=== PATIENT | male | born 1960 | race Hispanic/Latino ===

== ENCOUNTER 2019-06-15 16:41 | Emergency (ER) | payer MEDICAID ==
[2019-06-15] MEDS ORDERED: ONDANSETRON HCL 4 MG/2 ML VIAL ONE (17:13)
[2019-06-15] MEDS ORDERED: SODIUM CHLORIDE 0.9% 1000ML 1,000 ML IV ONE (17:14)
[2019-06-15 17:18] LABS: BASOPHILS % (AUTO) 0.4 % (0.0-5.0); EOSINOPHILS % (AUTO) 0.3 % (0.0-8.0); HEMATOCRIT 47.2 % (42-54); LYMPHOCYTES % (AUTO) 11.5 % (21.0-51.0); MEAN CORPUSCULAR HEMOGLOBIN 30.1 pg (27.0-33.0); MEAN CORPUSCULAR HGB CONC 33.5 g/dL (32.0-36.0); MEAN CORPUSCULAR VOLUME 89.9 fL (79-99); MONOCYTES % (AUTO) 6.2 % (3.0-13.0); NEUTROPHILS % (AUTO) 81.2 % (40.0-77.0); PLATELET COUNT (AUTO) 292 K/uL (130-400); RED BLOOD CELL COUNT(AUTO) 5.25 MIL/uL (4.50-6.20); RED CELL DISTRIBUTION WIDTH 12.9 % (11.0-15.5)
[2019-06-15 17:29] LABS: CREATININE 0.8 mg/dL (0.5-1.5); POTASSIUM 3.2 mmol/L (3.5-5.1)
[2019-06-15 17:36] LABS: ALBUMIN 4.2 g/dL (3.5-5.0); BILIRUBIN,DIRECT 0.1 mg/dL (0.0-0.3); BILIRUBIN,TOTAL 0.4 mg/dL (0.2-1.0); TOTAL PROTEIN, SERUM 8.3 g/dL (6.0-8.3)
[2019-06-15 19:38] LABS: APPEARANCE,URINE Clear (CLEAR); BILIRUBIN,URINE Negative (NEGATIVE); COLOR,URINE Yellow (YELLOW); GLUCOSE, URINE (UA) Negative (NEGATIVE); KETONES,URINE Negative (NEGATIVE); LEUKOCYTE ESTERASE ,URINE Negative (NEGATIVE); NITRATE,URINE Negative (NEGATIVE); OCCULT BLOOD,URINE Negative (NEGATIVE); PH,URINE 8.5 (5.0-8.0); PROTEIN,URINE Negative (NEGATIVE); UROBILINOGEN,URINE 0.2 mg/dL (0.2-1.0)
== END 2019-06-15 21:12 | disposition home or self-care (01) ==
LOC: EDH 16:41
DX: K52.9 Noninfective gastroenteritis and colitis, unspecified (principal); E78.00 Pure hypercholesterolemia, unspecified; I10 Essential (primary) hypertension; Z86.73 Personal history of transient ischemic attack (TIA), and cerebral infarction without residual deficits; Z98.890 Other specified postprocedural states; Z79.899 Other long term (current) drug therapy
CPT/HCPCS: 36415; 74176; 80048; 80076; 81003; 82550; 83690; 84484; 85025; 93005; 96361; 96374; 99285; J2405; J7030

== ENCOUNTER 2021-12-20 18:33 | Emergency (ER) | payer MEDICAID ==
[~2021-12-20] VITALS: Ht 165.1 cm; Wt 74.8 kg
[2021-12-20 18:34] VITALS: BP 138/81
[2021-12-20] MEDS ORDERED: OCTYL 2-CYANOACRYLATE 1 EACH TP ONE (19:11)
[2021-12-20] MEDS ORDERED: OCTYL 2-CYANOACRYLATE 1 EACH TP SCH (19:30)
== END 2021-12-20 20:20 | disposition home or self-care (01) ==
LOC: EDH 18:33
DX: D22.5 Melanocytic nevi of trunk (principal); E78.00 Pure hypercholesterolemia, unspecified; I10 Essential (primary) hypertension
CPT/HCPCS: 99282

== ENCOUNTER 2024-08-20 07:31 | Emergency (ER) | payer MEDICAID ==
[~2024-08-20] VITALS: Ht 167.6 cm; Wt 83.9 kg
[2024-08-20] MEDS: ketOROlac 30MG VIAL (30MG/ML) IM ONE (07:55)
--- NOTE | 2024-08-20 07:55 | ERN ---
General Chief Complaint: Ankle Problem Stated Complaint: LT ANKLE PAIN Time Seen by MD: 07:38 Source: patient History of Present Illness Initial Comments PATIENT IS A 64-YEAR-OLD MALE COMING IN TO BE EVALUATED FOR LEFT ANKLE PAIN. PATIENT DOES NOT REMEMBER TWISTING HIS ANKLE BUT STATES HE WOKE UP WITH SWELLING OF THE LEFT ANKLE WELL BRUISING. HE DOES STATE HE USES A WALKER FOR AMBULATION. Allergies: Coded Allergies: No Known Drug Allergies (Unverified Allergy, Unknown, 06/15/19) Past Medical History Past Medical History: High Cholesterol, Heart Disease, Hypertension, Stroke Medical History Other: CHRONIC RT SIDE WEAKNESS, LT FACIAL DROOP Past Surgical History: Other Surgical History Other: LT EYE ROS Dictation CONSTITUTIONAL: NO CHILLS, NO FEVER, NO WEAKNESS, NO DIAPHORESIS, NO MALAISE. HEAD/FACE: NO SIGNS OF TRAUMA. EENT: NO EYE PAIN, NO BLURRED VISION, NO TEARING, NO DOUBLE VISION, NO EAR PAIN, NO EAR DISCHARGE, NO NOSE PAIN, NO NASAL CONGESTION, NO THROAT PAIN, NO TH ROAT SWELLING, NO MOUTH PAIN. RESPIRATORY: NO COUGH, NO ORTHOPNEA, NO SOB, NO STRIDOR, NO WHEEZING. CARDIOVASCULAR: NO CHEST PAIN, NO EDEMA, NO PALPITATIONS, NO SYNCOPE. GASTROINTESTINAL/ABDOMINAL: NO ABDOMINAL PAIN, NO CONSTIPATION, NO DIARRHEA, NO NAUSEA, NO VOMITING. GENITOURINARY: NO ABNORMAL DISCHARGE, NO DYSURIA, NO FREQUENT URINATION, NO HEMATURIA. NO COMPLAINTS OF PAIN IN THE GENITALS. MUSCULOSKELETAL: NO BACK PAIN, NO GOUT, JOINT PAIN, JOINT SWELLING, NO MUSCLE PAIN, NO MUSCLE STIFFNESS, NO NECK PAIN. INTEGUMENTARY: NO CHANGE IN COLOR, NO CHANGE IN HAIR/NAILS, NO DRYNESS, NO LESION, NO LUMPS, NO RASH. NEUROLOGICAL/PSYCH: NO ANXIETY, NOT DEPRESSED, NO EMOTIONAL PROBLEM, NO HEADACHE, NO NUMBNESS, NO PRE-EXISTING DEFICIT, NO HISTORY OF SEIZURES, NO TREMORS, NO WEAKNESS. HEMATOLOGIC/LYMPHATIC: NOT ANEMIC, NO HISTORY OF BLOOD CLOTS, NO APPARENT BLEEDING, NO BRUISING, GLANDS NOT SWOLLEN. ALL SYSTEMS NEGATIVE, EXCEPT NOTED. Physical Exam Physical Exam Dictation VITAL SIGNS: REVIEWED. GENERAL APPEARANCE: ALERT, ORIENTED X3, NO ACUTE DISTRESS, OBESE. HEAD AND FACE: NON-TRAUMATIC. EYES: PERRL, PINK CONJUNCTIVAS, EYELID NO TRAUMA, ANTERIOR CHAMBER CLEAR. EARS: PINNAS INTACT AND NO SIGNS OF TRAUMA OR ERYTHEMA. EAR CANALS CLEAR AND NO DISCHARGE. TMS NO ERYTHEMA. NOSE: NO DISCHARGE, NO BLEEDING. OROPHARYNX: MOUTH NORMAL, TEETH NO CARIES, TONGUE PINK. PHARYNX CLEAR, NO ERYTHEMA. TONSILS NO EXUDATES, NO ABSCESSES NOTED. MUCOUS MEMBRANE MOIST. NECK: SUPPLE, NON-TENDER, NO THYROMEGALY, NO MASSES, NO JVD, NO BRUITS. BREAST: DEFERRED. CHEST: NO TENDERNESS, NO CREPITUS, NO PARADOXICAL MOVEMENT, NO RETRACTIONS. LUNGS: CLEAR, WELL-VENTILATED, SYMMETRIC, NO RALES, NO WHEEZING, NO RHONCHI, NO STRIDOR, GOOD BREATH SOUNDS BILATERALLY. HEART: REGULAR RATE, REGULAR RHYTHM, NO MURMUR, NO GALLOPS. VASCULAR: NO PERIPHERAL EDEMA. ABDOMEN: SOFT, POSITIVE BOWEL SOUNDS, NONDISTENDED, NO GUARDING, NONTENDER, NO REBOUND, NO MASSES NO HEPATOMEGALY, NO SPLENOMEGALY, NO ALANIZ'S SIGN, NO HERNIAS. RECTAL: DEFERRED. GENITAL: DEFERRED. NEUROLOGICAL: NORMAL SPEECH, GROSS MOTOR FUNCTION INTACT, GROSS SENSORY FUNCTION INTACT. MUSCULOSKELETAL: NECK NONTENDER, FULL RANGE OF MOTION, BACK NONTENDER, FULL RANGE OF MOTION. EXTREMITIES: NONTENDER, FULL RANGE OF MOTION. LEFT ANKLE TENDERNESS ON PALPATION, ECCHYMOSIS ON THE MEDIAL ASPECT SKIN: COLOR PINK, DRY, NO TURGOR, NO RASH, NO LACERATIONS, NO ABRASIONS, NO CONTUSIONS. LYMPHATICS: DEFERRED. Results Laboratory and Microbiology Labs Reviewed?: Yes EKG/XRAY/US/CT/MRI X-RAY Comment [place] [id number] [address] IMAGING REPORT Signed PATIENT: JUSTINE MUÑOZ MR#: [id number] : 1960 SEX: M AGE: 64 LOCATION: ED ORDER 3 STATUS: REG ER REPORT#: [id number] SERVICE [id number] REASON: ANKLE PAIN ORDERING PHYSICIAN: ETHAN JERONIMO MD PROCEDURE: [id number] - ANKLE COMP 3VWS LT Exam Type: ANKLE COMP 3VWS LT Clinical Information: ANKLE PAIN Comparison: None Findings: No fractures are seen. There is soft tissue swelling over the medial lateral malleolus consistent with ankle sprain. IMPRESSION: Ankle sprain. This could also represent cellulitis or edema. DICTATED BY: DANITA HEATH MD DATE: 08/20/24924 ELECTRONICALLY SIGNED BY: DANITA HEATH MD DATE: 08/20/24927 [facility] MDM: DIFFERENTIAL DIAGNOSIS: Ankle sprain, ankle fracture, ligament strain, cellulitis, pedal edema, RATIONALE: TESTS CONSIDERED AND ORDERED SECONDARY TO SHARED DECISION MAKING INCLUDE: PREVIOUS OUTSIDE RECORDS REVIEWED: OLD ER VISITS. RISK OF COMPLICATION AND/OR MORBIDITY OR MORTALITY OF PATIENT MANAGEMENT: NONE MEDICATIONS-PER MEDICATION RECONCILIATION NEED FOR HOSPITALIZATION: PATIENT DOES NOT MEET CRITERIA FOR HOSPITALIZATION. Patient is a 64-year-old male coming in to be evaluated for ankle discomfort. X-ray did not disclose acute findings. Patient will be discharged in stable condition with a diagnosis of ankle sprain. X-ray did disclose possibility of study dialysis well saw antibiotics will be provided. ED Course Orders Procedure Category Date Status Time Ankle Comp 3vws Lt RAD 08/20/24 Resulted 07:42 Ketorolac PHA 08/20/24 Complete Tromethamine 30mg/Ml 08:00 Current Medications Medications (Trade) Dose Ordered Sig/Eliana Route PRN Reason Start Time Stop Time Status Last Admin Dose Admin Ketorolac Tromethamine (toRADol) 30 mg ONCE ONCE IM 08/20/24 08:00 08/20/24 08:01 DC 08/20/24 07:55 Vital Signs Date Time Temp Pulse Resp B/P (MAP) Pulse Ox O2 Delivery O2 Flow Rate FiO2 08/20/24 07:38 97.9 70 16 148/79 95 Room Air 0 DX & DISP Disposition: Discharge Departure Impression: Primary Impression: Ankle sprain Additional Impression: Cellulitis Condition: Stable Scripts Naproxen (Naproxen) 375 Mg Tablet. 375 MG PO BID for 7 Days, #14 TAB Prov: ETHAN JERONIMO MD 08/20/24 Cephalexin Monohydrate (Keflex) 500 Mg Cap 1 CAP PO TID for 10 Days, #30 CAP 0 Refills Prov: ETHAN JERONIMO MD 08/20/24 Additional Instructions: FOLLOW-UP WITH PRIMARY CARE PROVIDER IN 1 TO 2 DAYS. TAKE MEDICATIONS DIRECTED HERE IN THE EMERGENCY ROOM. OKAY TO CONTINUE HOME MEDICATIONS UNLESS OTHERWISE DISCUSSED DURING YOUR VISIT IN THE EMERGENCY ROOM TODAY. RETURN TO YOUR NEAREST EMERGENCY ROOM IF SYMPTOMS WORSEN OR IF THERE IS NO IMPROVEMENT. CALL 911 IF YOU NEED IMMEDIATE ASSISTANCE. TAKE TYLENOL [id number] NEEDED AND IF NO CONTRAINDICATIONS ARE PRESENT. INCREASE ORAL HYDRATION. A WOUND CULTURE OR URINE CULTURE WAS ORDERED HERE IN THE EMERGENCY ROOM DEPARTMENT PLEASE FOLLOW-UP WITH PRIMARY CARE PROVIDER AND ADVISE THEM TO GET REPEAT PORTS FROM OUR FACILITY. IF YOU HAD ANY ALFREDO WRAP/SPLINTS THAT WERE APPLIED HERE, PLEASE DO NOT REMOVE THEM UNTIL YOU SEE YOUR PRIMARY CARE OR SPECIALTY. Referrals: Referrals: KEON WESTON (PCP) Time of Disposition: 09:44 ETHAN JERONIMO MD Aug 20, 2024 07:55
--- NOTE | 2024-08-20 09:28 | HMCIMG ---
Exam Type: ANKLE COMP 3VWS LT Clinical Information: ANKLE PAIN Comparison: None Findings: No fractures are seen. There is soft tissue swelling over the medial lateral malleolus consistent with ankle sprain. IMPRESSION: Ankle sprain. This could also represent cellulitis or edema.
[2024-08-20] MEDS ORDERED: NAPR-1505 PO (09:45)
[2024-08-20] MEDS ORDERED: CEPH500B PO (09:45)
[2024-08-20] MEDS: traMADol HCL 50 MG TABLET PO ONE (10:17)
[2024-08-20 10:48] VITALS: BP 132/80; PULSE 74; RESP 18; TEMP 98.2; O2SAT 97
== END 2024-08-20 10:50 | disposition home or self-care (01) ==
LOC: EDH 07:31
DX: S93.409A Sprain of unspecified ligament of unspecified ankle, initial encounter (principal); L03.90 Cellulitis, unspecified; E78.00 Pure hypercholesterolemia, unspecified; I10 Essential (primary) hypertension; Z86.73 Personal history of transient ischemic attack (TIA), and cerebral infarction without residual deficits; Z98.890 Other specified postprocedural states; X58.XXXA Exposure to other specified factors, initial encounter; Y93.89 Activity, other specified; Y92.89 Other specified places as the place of occurrence of the external cause; Y99.8 Other external cause status
CPT/HCPCS: 99283; 73610; 96372; J1885